=== PATIENT | female | born 1950 | race Two or more races ===

== ENCOUNTER 2023-10-17 06:01 | Day surgery (SDC) | payer OTHER ==
[2023-10-10 08:50] LABS: HEMATOCRIT 38.5 % (36.0-45.00); HEMOGLOBIN 12.7 g/dL (12.0-15.00); MEAN CELL VOLUME 85.8 fL (80.00-100.00); MEAN CORPUSCULAR HEMOGLOBIN 28.3 pg (27.00-32.0); PLATELET COUNT 322 K/uL (150-450); RED BLOOD COUNT 4.48 M/uL (4.00-6.00); RED CELL DISTRIBUTION WIDTH 13.9 % (11.5-14.5)
[2023-10-10 09:31] LABS: ALBUMIN 4.1 gm/dL (3.4-5.0); BILIRUBIN TOTAL 0.36 mg/dL (0.3-1.2); CALCIUM 10.3 mg/dL (8.5-10.1); CREATININE SERUM 0.75 mg/dL (0.55-1.02); GFR 75.75; GLOBULINA 3.8 G/DL (2.4-3.5); INR 1.03; POTASSIUM 4.7 mEq/L (3.5-5.1); PROTHROMBIN TIME 10.8 SECONDS (9.0-11.5); TOTAL PROTEIN 7.9 gm/dL (6.4-8.2)
[2023-10-10 09:41] LABS: PH,URINE 6.5 (5.0-8.0); URINE APPEARANCE Clear; URINE BILIRRUBIN Negative (NEGATIVE); URINE BLOOD Negative; URINE COLOR Yellow; URINE GLUCOSE Negative (NEGATIVE); URINE LEUKOCYTE Negative; URINE NITRATE Negative; URINE PROTEIN Negative (NEGATIVE); URINE UROBILINOGEN 0.2 E.U./dl
[2023-10-10 09:44] LABS: URINE EPITHELIAL CELLS 1.8 uL (0.0-38.8); URINE WBC 2.9 uL (0.0-23.2)
[2023-10-10 09:49] LABS: URINE RBC 0.5 uL (0.0-20.8)
[~2023-10-17 06:01] MED LIST: METFORMIN HCL500 M3; NEUROTIN 400MG; PROTONIX40 MG; SIMBASTATIN; [UNRECOGNIZED DRUG - OTHER]
== END 2023-10-17 14:30 | disposition home or self-care (01) ==
LOC: CIR.AMB 06:01
PROVIDERS: ATTEND Orthopaedic Surgery
DX: M75.121 Complete rotator cuff tear or rupture of right shoulder, not specified as traumatic (principal); M19.011 Primary osteoarthritis, right shoulder; E11.9 Type 2 diabetes mellitus without complications; Z20.822 Contact with and (suspected) exposure to COVID-19